=== PATIENT | female | born 1980 | race Caucasian/White ===

== ENCOUNTER 2016-09-01 20:12 | Inpatient (IN) | payer OTHER ==
--- NOTE | ~2016-09-01 | CO ---
Unit #: [id number] #: [id number] Patient: ERIC ABDULLAHI [id number] [address] [place], [place] [address] [id number] I MR#: [id number] NAME: ERIC ABDULLAHI ROOM: 565 Age: 36 Sex: F Admission Date: 09/01/2016 : 1980 Attending Physician: Maritza Cannon M.D. Primary Care Physician: Em Shine M.D. Consultation Date: 09/03/2016 CONSULTATION REPORT REASON FOR CONSULTATION Gram-negative sepsis. HISTORY OF PRESENT ILLNESS This is a 36-year-old female with a history of low back pain and migraines chronically. The patient came to the emergency room with several day complaint of increasing left flank pain with some discomfort with urination and subjective fever and chills. The patient did have a CT scan of the abdomen done when she was admitted which was consistent with left-sided pyelonephritis. She was admitted for further evaluation and was found to have leukocytosis. The patient's blood pressure was borderline and she was admitted to the telemetry floor. The patient now has positive blood cultures for gram-negative rods thought to be E. coli per the microbiology department and urine culture is currently pending. However, there is pyuria on the urinary analysis. The patient initially was started on Rocephin but was changed to cefepime per the primary care team and ID was asked to evaluate. In other report, the patient reports that she recently has been on penicillin due to multiple abscesses in her mouth and she is status post eight teeth extracted. She reports positive tobacco abuse but no drug use. PAST MEDICAL HISTORY As previously stated above, chronic back pain and migraines. PAST SURGICAL HISTORY Back surgeries, hysterectomy, oophorectomy, laparoscopic cholecystectomy and recent teeth extraction secondary to abscesses. SOCIAL HISTORY The patient reports positive tobacco. No alcohol or other drug use. ALLERGIES The patient reports that she is allergic to Naprosyn. MEDICATIONS Patient is currently on cefepime. For other medications, please refer to patient's MAR. REVIEW OF SYSTEMS The patient reports ongoing subjective fever, chills. No sweats. She reports migraine headache. She denies any drug pain, shortness of breath or chest pain. She denies any nausea, vomiting or diarrhea. She does report ongoing left flank pain with some pain with urination; however, this is slightly improved. The patient denies any nonhealing wound. She Unit #: [id number] #: [id number] Patient: ERIC ABDULLAHI does report some discomfort in her mouth. PHYSICAL EXAMINATION GENERAL APPEARANCE: This is a no apparent distressed female who is easily awakened during exam. VITAL SIGNS: Temperature 99.4 with a T-max of 99.5 on admission. Pulse 81. Blood pressure 105/68. Respiratory rate 18. HEENT: The patient's mouth exam reveals poor dentition and multiple teeth extracted. CARDIOVASCULAR: S1, S2. Regular rate and rhythm. PULMONARY: Clear to auscultation bilaterally with no wheezes or rhonchi noted. ABDOMEN: Positive bowel sounds. Soft. There is some left CVA tenderness to palpation and tenderness over bladder. EXTREMITIES: No clubbing, cyanosis or edema. DIAGNOSTIC STUDIES LABORATORY: BUN 13, creatinine 0.7, sodium 135, potassium 3.8, chloride 107, CO2 23, bilirubin 0.9, AST 38, ALT 44. WBC count 10.5, hemoglobin 10.7, hematocrit 33.1, platelets 185. Urinary analysis shows pyuria with innumerable WBCs, positive nitrite, positive blood, 3+ leukocytes and 4+ bacteria. Blood cultures show 2/2 gram-negative rods suspicious of E. coli. Urinary culture is currently pending. IMAGING: CT scan shows swollen left kidney. No hydronephrosis or obstruction. No stones. Suspected pyelonephritis. IMPRESSION This is a 36-year-old female admitted with subjective fever, chills, left flank pain and dysuria. The patient was found to have gram-negative sepsis secondary to urinary tract infection and CT scan consistent with pyelo without evidence of obstruction. At this time, we will follow along the id of the gram-negative lars as it is most likely E. coli. As the patient continues to have some low-grade fever; however, creatinine is stable and her leukocytosis is improving, she has ongoing pain, we will give gentamicin times one until the sensitivities of all cultures are known. We will continue cefepime but increase the dose. We will repeat blood cultures x2 30 minutes apart. The patient does have recently the eight teeth extracted due to abscesses and we will continue to observe her mouth for any ongoing abscesses. The patient does deny to me any drug use during discussion. Thank you for allowing us to participate in the care of this patient. Further recommendations to follow pending patient's clinical course. Dictated by... Tito Mario.P.RAdrianneNAdrianne for Geovany Good/deshaun TD: 09/03/2016 09:31 JOB #: [id number] Unit #: [id number] #: [id number] Patient: ERIC ABDULLAHI CONSULTATION REPORT Page 1 of 1 X X CONSULTATION REPORT
--- NOTE | ~2016-09-01 | DS ---
Unit #: [id number] #: [id number] Patient: ERIC ABDULLAHI [id number] [address] [address] [id number] I MR#: [id number] NAME: ERIC ABDULLAHI ROOM: 565 Age: 36 Sex: F Admission Date: 09/01/2016 : 1980 Discharge Date: 09/06/2016 Attending Physician: Maritza Cannon M.D. Referring Physician: Em Shine M.D. Primary Care Physician: Em Shine M.D. DISCHARGE SUMMARY FINAL DIAGNOSES 1. Gram-negative sepsis bacteremia with Escherichia coli. 2. Acute left pyelonephritis. 3. History of recurrent pyelonephritis. No evidence of ureteral dilatation. 4. 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 5. History of migraine. 6. Chronic back pain. DISCHARGE MEDICATIONS Levaquin 750 mg p.o. daily for 21 days, Bactrim single strength half tablet p.o. p.r.n. as needed for intercourse. Continue rest of the home medications. CONSULTATION DURING HOSPITALIZATION 1. Dr. Woodard from [facility]. 2. Dr. Fish and Dr. Abel from [facility]. DIAGNOSTIC STUDIES LABORATORY RESULTS: Lab workup on discharge; sodium 141, potassium 3.7, chloride 108, BUN 9, creatinine 0.6. CBC shows WBC 8.4, hemoglobin 10.2, hematocrit 31.4, and platelet count of 260. Blood cultures on 09/01/2016 showed E coli, but the repeat one done on 09/03/2016 which was negative for any growth. Urine culture was positive for E coli, which was sensitive to cefepime and also Levaquin. IMAGING STUDIES: Imaging studies done during hospitalization was CT scan of the abdomen and pelvis, which was done on 09/01/2016, which shows diffusely swollen left kidney. No evidence of hydronephrosis or obstruction. There is no evidence of renal or ureteral stones. Most likely representing pyelonephritis. Hepatic steatosis is present, status post cholecystectomy. HOSPITAL COURSE Ms. Eric Abdullahi is a 36-year-old female, who was admitted by my colleague, Dr. Fung, with abdominal pain, nausea, and low back pain with fever and chills. The patient was admitted to telemetry unit. The patient did have leukocytosis and high temperature. Blood cultures were done which grew E coli. Urine culture also grew E coli. The patient received IV cefepime 2 g q.[address] Woodard from Urology services were consulted and as per Dr. Woodard, the patient has had recurrent pyelonephritis. She does have recurrent urinary tract infection associated with intercourse. IV antibiotics were continued and Unit #: [id number] #: [id number] Patient: ERIC ABDULLAHI Bactrim single strength was recommended for intercourse and it was also noted that for break through. She is to follow up in the office of Dr. Wodoard, possibly benefitted from VCUG in the event of future episodes of pyelonephritis. The patient was also seen by Infectious Disease for gram-negative sepsis. The recommendation is to continue Levaquin 750 mg daily for 21 days total. OBJECTIVE VITAL SIGNS: On discharge, blood pressure is 119/72, respiratory rate 16, pulse is 79, temperature 98.2. CHEST: Fair air entry. CVS: Regular rhythm. ABDOMEN: Soft. EXTREMITIES: Negative edema. DISCHARGE INSTRUCTIONS 1. Follow up primary care provider in 1 week. 2. Prescription for Bactrim and Levaquin has been written. 3. Plan of care has been discussed with the patient. 4. Tobacco cessation counseling done. Dictated by... Geovany Morton/ingrid TD: 09/07/2016 01:59 JOB #: [id number] DISCHARGE SUMMARY Page 1 of 1 X Maritza Cannon MD X DISCHARGE SUMMARY
--- NOTE | ~2016-09-01 | CO ---
Unit #: [id number] #: [id number] Patient: ERIC ABDULLAHI [id number] [address] [id number] I MR#: [id number] NAME: ERIC ABDULLAHI ROOM: 565 Age: 36 Sex: F Admission Date: 09/01/2016 : 1980 Attending Physician: Maritza Cannon M.D. Primary Care Physician: Em Shine M.D. Consultation Date: 09/03/2016 CONSULTATION REPORT REASON FOR CONSULTATION Left-sided pyelonephritis. HISTORY This 36-year-old woman presented acutely two days ago with fever and left flank pain. She has been admitted with diagnosis of left pyelonephritis and responded to antibiotic therapy empirically with Rocephin. Note that antibiotics were changed to cefepime and a single dose gentamicin was administered per infectious disease. She is feeling better. She reports several episodes of pyelonephritis among history of recurrent urinary tract infections. On further questioning, she has no history of stomach disease, chronic voiding complaints, trouble emptying, or gross hematuria. She believes at least some of her urinary infections have been associated with intercourse. [employer] history pertinent for two sections. She has not had a hysterectomy, only a left salpingo-oophorectomy. She has had menstrual periods every two weeks lately. PAST MEDICAL HISTORY 1. Low-back pain. 2. Migraines. PAST SURGICAL HISTORY 1. section x2. 2. Cholecystectomy. 3. Left salpingo-oophorectomy. MEDICATIONS 1. Gabapentin. 2. Zofran. 3. Protonix. 4. Propranolol. 5. Flexeril. 6. Lortab. ALLERGIES Naprosyn. FAMILY HISTORY Noncontributory. SOCIAL HISTORY Unit #: [id number] #: [id number] Patient: ERIC ABDULLAHI Active smoker. No drug or alcohol use. Two teenage children. Male partner sleeping with her in the room. REVIEW OF SYSTEMS Pertinent for the above. PHYSICAL EXAMINATION GENERAL: Patient is awake, alert. HEENT: Poor dentition, otherwise normal HEENT. ABDOMEN: Overweight, soft. No anterior tenderness, masses, or hernias. Marked left CVA tenderness. PELVIC: Normal introitus, urethra, and meatus. Fairly good support. A 0 to 1+ cystocele. Normal urethra. Normal cervix and uterus. Blood on pad and fingertip. DIAGNOSTIC STUDIES LABORATORY: Creatinine 0.7. WBC 10 down from 19. Urine culture still pending but there is a gram-negative lars in one of the blood cultures, possibly E. coli. IMAGING: X-ray of CT scan shows left renal edema. No stone or obstruction. No evidence of ureteral dilation. IMPRESSION 1. Acute left pyelonephritis with gram-negative bacteremia. 2. History of recurrent pyelonephritis, no evidence of ureteral dilatation. 3. 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 PLAN 1. Will await culture results and defer definitive antibiotic management to infectious disease. 2. Recommend Bactrim single strength as needed for intercourse one half tab p.r.n. and this is prescribed. 3. For breakthrough, she is invited to follow up with me in the office and could possibly benefit from a VCUG in the event of future episodes of pyelonephritis. Thank you for the consultationMaritza. Dictated by... Surjit Woodard M.D. KETURAH/sury TD: 09/03/2016 12:11 JOB #: [id number] CC: Geovany Morton M.D. Unit #: [id number] #: [id number] Patient: ERIC ABDULLAHI CONSULTATION REPORT Page 1 of 1 X Surjit Woodard MD X CONSULTATION REPORT
--- NOTE | ~2016-09-01 | HP ---
Unit #: [id number] #: [id number] Patient: ERIC ABDULLAHI [id number] [address] [address] [id number] I MR#: [id number] NAME: ERIC ABDULLAHI ROOM: 565 Age: 36 Sex: F Admission Date: 09/01/2016 : 1980 Attending Physician: Maritza Cannon M.D. Referring Physician: Em Shine M.D. Primary Care Physician: Em Shine M.D. HISTORY AND PHYSICAL ADMISSION DIAGNOSES 1. Left pyelonephritis. 2. History of chronic back pain. 3. History of migraines. 4. Bacteremia with questionable sepsis. HISTORY OF PRESENT ILLNESS Ms. Eric Abdullahi is a 36-year-old female with a past medical history of chronic low back pain, migraines. She is a patient of Dr. Shine'farideh who presents to the emergency room with the complaints of left sided flank pain along with some dysuria and subjective fever and chills. CT of the abdomen and pelvis showed the left sided pyelonephritis. The patient's white count is 16,000. She is slightly hypotensive at 100/60. Initial evaluation also significant for one out of two preliminary blood cultures positive for GNR. The patient was started on the IV Rocephin and admitted. She currently denies any other symptoms, denies any chest pain, shortness of air, dyspnea. Denies any headache, dizziness. She is nauseous. Denies any vomiting or diarrhea. Denies any syncope or presyncope. REVIEW OF SYSTEMS Twelve point review of systems on this patient is basically negative except as above. PAST MEDICAL HISTORY Significant for: 1. History of chronic low back pain. 2. Migraines. PAST SURGICAL HISTORY Significant for: 1. Multiple back surgeries. 2. Hysterectomy. 3. It looks like she had also a C-scope per general surgery. 4. Left oophorectomy and salpingectomy in the past. 5. Lap rosa. MEDICATIONS Home medications on this female - apparently, she was takin. Gabapentin. 2. Zofran. 3. Protonix. 4. Propranolol. 5. Flexeril. Unit #: [id number] #: [id number] Patient: ERIC ABDULLAHI 6. Lortab. ALLERGIES Coded allergies include Naprosyn but she received Toradol without any difficulties and continues to take Toradol without any problems. FAMILY HISTORY Unremarkable. SOCIAL HISTORY She is an active smoker. Denies any alcohol or illicit drug abuse. FAMILY HISTORY Unremarkable. PHYSICAL EXAMINATION GENERAL: The patient is a 36-year-old female in no acute distress. VITAL SIGNS: Blood pressure 100/60, heart rate 58, respirations 20, temperature 97.9. HEENT: Head is atraumatic. Pupils equal, round and reactive to light and accommodation. Extraocular muscles intact. Oropharynx clean. NECK: Supple. No masses, no JVD, no bruits. CHEST: Diminished bilaterally. CARDIOVASCULAR EXAM: S1, S2. No murmurs. ABDOMEN: Soft, nontender, nondistended. EXTREMITIES: Lower extremities without any cyanosis, clubbing or edema. She does have a left sided CVA tenderness. NEUROLOGICAL: The patient is grossly intact. No focal deficits. DIAGNOSTIC STUDIES IMAGING: CT abdomen and pelvis as above. LABORATORY: White count 16,000, H and H 11.3 and 35, blood glucose of 217. ASSESSMENT AND PLAN 1. Left sided pyelonephritis: Will change Rocephin to cefepime since patient does have bacteremia as well. 2. Bacteremia: Continue with IV cefepime. Ask ID consult. Will start sepsis protocol. Check lactic acid in the morning. 3. History of chronic back pain: Continue chronic pain meds. 4. History of migraines: Continue propranolol. 5. GI and DVT prophylaxis with some PPI and SCDs. Dictated by Geovany Howell/edilia TD: 09/03/2016 05:27 JOB #: [id number] Unit #: [id number] #: [id number] Patient: ERIC ABDULLAHI HISTORY AND PHYSICAL Page 1 of 1 X Mike Fung MD HISTORY AND PHYSICAL
--- NOTE | ~2016-09-01 | CT4 ---
[facility] A Service of [facility] RADIOLOGY TEXT RESULTS PATIENT: ERIC ABDULLAHI LOCATION: [facility] 565-01 : [birth year] UNIT #: [id number] AGE: [address]: Maritza Cannon MD SEX: F ORDER DR: [id number] [facility] [address] [place], [place] [address] [id number] I MR#: [id number] Acc #: [id number] NAME: ERIC ABDULLAHI : 1980 SEX: F STUDY DATE/TIME: 09/01/2016 21:44 UNIT: [facility] ROOM: 5 STUDY DESCRIPTION: CT Abd and Pelv Wo Cont Attending Physician: Maritza Cannon M.D. Referring Physician: Em Shine M.D. Ordering Physician: Tamiko Lang M.D. Primary Care Physician: Em Shine M.D. MEDICAL IMAGING REPORT This report is preliminary unless electronic signature is present EXAM CT of the abdomen and pelvis without contrast media. HISTORY Left flank pain, fever, vomiting for two day. TECHNIQUE Transaxial imaging of the abdomen and pelvis was performed without contrast media. This CT exam was performed with one or more of the following radiation dose reduction techniques: automatic exposure control, adjustment of mA and/or kV according to patient size, and iterative reconstruction. FINDINGS Scans through the lung bases are normal. Scans through the liver parenchyma show an area of hepatic steatosis in segment 4 of the liver. Spleen in this patient appears of normal size. Adrenal glands are normal. Pancreas is relatively atrophic. Gallbladder is absent. The right kidney is normal. There is perinephric edema around the left kidney and the left kidney is swollen. There are no stones identified in the left kidney. The left ureter is nondilated. There are no stones within the left ureter. The bladder is normal. The uterus is unremarkable. There are small follicular cysts in the left ovary. No pelvic masses are seen. There are no fluid collections. Appendix is normal. CONCLUSION 1. Diffusely swollen left kidney. There is no evidence of hydronephrosis or obstruction. There is no evidence of renal or ureteral stones. I think this most likely represents pyelonephritis. 2. Hepatic steatosis particularly segment 4. 3. Status post cholecystectomy. [facility]. [facility] A Service of [facility] RADIOLOGY TEXT RESULTS PATIENT: ERIC ABDULLAHI LOCATION: [facility] 565-01 : [birth year] UNIT #: [id number] AGE: [address]: Maritza Cannon MD SEX: F ORDER DR: Dictated by... Vincenzo Mcknight M.D. THIS IS AN ELECTRONICALLY VERIFIED REPORT Vincenzo Mcknight M.D. at 09/02/2016 10:35 AM Jose Angel TD: 09/02/2016 06:09 JOB #: [id number] MEDICAL IMAGING REPORT Page 1 of 1 COPY
[~2016-09-01 20:12] MED LIST: ACIPHEX20 MG PO; AMBIEN10 MG; BACTRIM 400-801 TA1 PO; BCP; BIRTH CONTROL PILL PO; CLEOCIN PO; COZAAR PO; DIFLUCAN10 MG/ML PO; FIORINAL CAPSUL1 CAP PO; FLEXERIL; HYZAAR 100-12.51 TAB PO; KLONOPIN; LEVAQUIN PO; LITHIUM; LORTAB 10-5001 EACH PO; MIDRIN CAPSULE1 CAP; PAXIL CR; PHENERGAN25 M1 PO; PHENERGAN25 MG PO; PROZAC; SYNTHROID
[2016-09-01 20:47] LABS: BASOPHIL# 0.1 X10e3 (0-0.3); BASOPHIL% 0.4 % (0-2.5); HEMATOCRIT 38.2 % (35.0-45.0); HEMOGLOBIN 12.3 gm/dL (12.0-16.0); LYMPHOCYTE# 0.8 X10e3 (1.0-3.5); LYMPHOCYTE% 4.1 % (17.0-45.0); MEAN CELL VOLUME 81.9 FL (83-96); MEAN CORPUSCULAR HEMOGLOBIN 26.4 PG (28-34); MEAN CORPUSCULAR HGB CONC 32.3 g/dL (30-36); MEAN PLATELET VOLUME 7.9 FL (6.5-11.5); MONOCYTE# 1.3 X10e3 (0-1.0); MONOCYTE% 6.7 % (3.0-12.0); NEUTROPHIL# 17.1 X10e3 (1.5-7.1); NEUTROPHIL% 88.8 % (40-75); PLATELET COUNT 231 X10e3 (140-420); RED BLOOD COUNT 4.66 X10e (3.90-5.30); RED CELL DISTRIBUTION WIDTH 17.1 % (11.0-15.5); WHITE BLOOD COUNT 19.3 X10e3 (4.0-10.5)
[2016-09-01 20:53] LABS: DIFF IND YES
[2016-09-01 21:09] LABS: URINE SOURCE CLEAN CATCH
[2016-09-01 21:09] LABS: PLATELET ESTIMATE NORMAL (NORMAL)
[2016-09-01 21:11] LABS: ANISOCYTOSIS SL; HYPOCHROMIA SL
[2016-09-01 21:15] LABS: URINE APPEARANCE TURBID; URINE BLOOD 3+ (NEG); URINE COLOR DK YELLOW; URINE GLUCOSE NEG (NEG); URINE KETONE 2+ (NEG); URINE LEUKOCYTE ESTERASE 3+ (NEG); URINE NITRATE POS (NEG); URINE PROTEIN 2+ (NEG)
[2016-09-01 21:15] LABS: ALBUMIN SERUM 3.6 g/dL (3.5-5.0); ALKALINE PHOSPHATASE 119 U/L (32-92); ALT (SGPT) 46 U/L (10-40); AMYLASE 3 U/L (0-46); AST (SGOT) 39 U/L (10-42); BILIRUBIN, DIRECT 0.3 mg/dL (0.0-0.2); BILIRUBIN,INDIRECT 0.6 mg/dL (0.0-0.9); BILIRUBIN,TOTAL 0.9 mg/dL (0.2-2.0); BLOOD UREA NITROGEN 10 mg/dL (9-23); BUN/CREATININE RATIO 14.28; CALCIUM SERUM 8.9 mg/dL (8.4-10.2); CARBON DIOXIDE 16 mmol/L (22-31); CHLORIDE 106 mmol/L (100-111); CREATININE SERUM 0.7 mg/dL (0.6-1.4); GLOM FILT RATE Estimated ABOVE60 mL/min (>60); GLUCOSE FASTING 108 mg/dL (70-110); LIPASE 10 U/L (22-51); POTASSIUM 3.8 mmol/L (3.5-5.1); PROTEIN TOTAL SERUM 7.1 g/dL (6.0-8.3); SODIUM 133 mmol/L (135-145)
[2016-09-01 21:18] LABS: URINE BILIRUBIN NEG (NEG)
[2016-09-01 21:19] LABS: CULTURE INDICATED? YES; URBCS1 AUWI 100-200 /[HPF] (0-2); URINE BACTERIA AUWI 4+ (NEGATIVE); URINE SQUAMOUS EPITHELIAL CELL OCC /[HPF]; UWBCS1 AUWI INNUM (0-5)
[2016-09-01 21:23] LABS: U HYALINE CASTS AUWI 0-2 /[LPF]
[2016-09-01] MEDS ORDERED: NO MEDICATIONS (23:08)
[2016-09-02] MEDS ORDERED: PROTONIX PO (02:33)
[2016-09-02] MEDS ORDERED: NEURONTIN PO (02:33)
[2016-09-02] MEDS ORDERED: INDERAL40 MG PO (02:33)
[2016-09-02] MEDS ORDERED: FLEXERIL10 MG PO (02:34)
[2016-09-02] MEDS ORDERED: AMBIEN PO (02:34)
[2016-09-02 12:57] LABS: BASOPHIL% 0.2 % (0-2.5); HEMOGLOBIN 11.3 gm/dL (12.0-16.0); LYMPHOCYTE# 0.7 X10e3 (1.0-3.5); MEAN CELL VOLUME 82.7 FL (83-96); MEAN CORPUSCULAR HEMOGLOBIN 26.7 PG (28-34); MEAN CORPUSCULAR HGB CONC 32.3 g/dL (30-36); MEAN PLATELET VOLUME 8.2 FL (6.5-11.5); MONOCYTE# 0.9 X10e3 (0-1.0); MONOCYTE% 5.1 % (3.0-12.0); NEUTROPHIL# 15.3 X10e3 (1.5-7.1); NEUTROPHIL% 90.7 % (40-75); PLATELET COUNT 213 X10e3 (140-420); RED BLOOD COUNT 4.23 X10e (3.90-5.30); RED CELL DISTRIBUTION WIDTH 17.1 % (11.0-15.5); WHITE BLOOD COUNT 16.9 X10e3 (4.0-10.5)
[2016-09-02 12:58] LABS: DIFF IND NO
[2016-09-02 13:09] LABS: ALBUMIN SERUM 2.9 g/dL (3.5-5.0); BILIRUBIN,TOTAL 0.9 mg/dL (0.2-2.0); BUN/CREATININE RATIO 17.14; CALCIUM SERUM 8.5 mg/dL (8.4-10.2); CREATININE SERUM 0.7 mg/dL (0.6-1.4); GLOM FILT RATE Estimated 109.9 mL/min (>60); POTASSIUM 3.8 mmol/L (3.5-5.1); PROTEIN TOTAL SERUM 6.3 g/dL (6.0-8.3)
[2016-09-03 01:35] LABS: INR 1.1; PROTHROMBIN TIME (PATIENT) 12.1 SECONDS (9.6-11.5)
[2016-09-03 06:59] LABS: HEMATOCRIT 33.1 % (35.0-45.0); HEMOGLOBIN 10.7 gm/dL (12.0-16.0); MEAN CELL VOLUME 83.2 FL (83-96); MEAN CORPUSCULAR HGB CONC 32.4 g/dL (30-36); MEAN PLATELET VOLUME 8.5 FL (6.5-11.5); RED BLOOD COUNT 3.98 X10e (3.90-5.30); RED CELL DISTRIBUTION WIDTH 17.1 % (11.0-15.5); WHITE BLOOD COUNT 10.5 X10e3 (4.0-10.5)
[2016-09-03 07:43] LABS: BUN/CREATININE RATIO 18.57; CALCIUM SERUM 8.3 mg/dL (8.4-10.2); CREATININE SERUM 0.7 mg/dL (0.6-1.4); GLOM FILT RATE Estimated 109.9 mL/min (>60); POTASSIUM 3.8 mmol/L (3.5-5.1)
[2016-09-04 06:21] LABS: HEMATOCRIT 32.4 % (35.0-45.0); HEMOGLOBIN 10.5 gm/dL (12.0-16.0); MEAN CELL VOLUME 83.7 FL (83-96); MEAN CORPUSCULAR HEMOGLOBIN 27.2 PG (28-34); MEAN CORPUSCULAR HGB CONC 32.4 g/dL (30-36); MEAN PLATELET VOLUME 8.5 FL (6.5-11.5); RED BLOOD COUNT 3.88 X10e (3.90-5.30); RED CELL DISTRIBUTION WIDTH 17.1 % (11.0-15.5); WHITE BLOOD COUNT 8.7 X10e3 (4.0-10.5)
[2016-09-04 07:05] LABS: BUN/CREATININE RATIO 15.55; CREATININE SERUM 0.9 mg/dL (0.6-1.4); GLOM FILT RATE Estimated 81.2 mL/min (>60); POTASSIUM 3.3 mmol/L (3.5-5.1)
[2016-09-05 04:51] LABS: HEMATOCRIT 30.9 % (35.0-45.0); HEMOGLOBIN 9.9 gm/dL (12.0-16.0); MEAN CELL VOLUME 84.2 FL (83-96); MEAN CORPUSCULAR HEMOGLOBIN 26.9 PG (28-34); MEAN PLATELET VOLUME 8.4 FL (6.5-11.5); RED BLOOD COUNT 3.67 X10e (3.90-5.30); RED CELL DISTRIBUTION WIDTH 17.1 % (11.0-15.5); WHITE BLOOD COUNT 6.6 X10e3 (4.0-10.5)
[2016-09-05 05:07] LABS: BUN/CREATININE RATIO 13.75; CALCIUM SERUM 8.5 mg/dL (8.4-10.2); CREATININE SERUM 0.8 mg/dL (0.6-1.4); GLOM FILT RATE Estimated 93.6 mL/min (>60); POTASSIUM 3.7 mmol/L (3.5-5.1)
[2016-09-06 07:17] LABS: HEMATOCRIT 31.4 % (35.0-45.0); HEMOGLOBIN 10.2 gm/dL (12.0-16.0); MEAN CORPUSCULAR HEMOGLOBIN 27.1 PG (28-34); MEAN CORPUSCULAR HGB CONC 32.6 g/dL (30-36); MEAN PLATELET VOLUME 8.2 FL (6.5-11.5); RED BLOOD COUNT 3.78 X10e (3.90-5.30); RED CELL DISTRIBUTION WIDTH 17.4 % (11.0-15.5); WHITE BLOOD COUNT 8.4 X10e3 (4.0-10.5)
[2016-09-06 07:51] LABS: CALCIUM SERUM 8.4 mg/dL (8.4-10.2); CREATININE SERUM 0.6 mg/dL (0.6-1.4); GLOM FILT RATE Estimated 115.6 mL/min (>60); POTASSIUM 3.7 mmol/L (3.5-5.1)
[2016-09-06] MEDS ORDERED: ACETAMINOPHEN PO (11:22)
[2016-09-06] MEDS ORDERED: FLORASTORKIDS250 MG PO (11:23)
[2016-09-06] MEDS ORDERED: LEVAQUIN750 MG PO (11:23)
[2016-09-06] MEDS ORDERED: BACTRIM DS TABL1 TA2 PO (11:24)
== END 2016-09-06 12:35 | disposition home or self-care (01) | DRG 872 ==
LOC: CED 20:12 → CEDOF 22:09 → C5C 09-02 02:10
PROVIDERS: Emergency Medicine; Hospitalist; Physician Assistant Medical
DX: A41.51 Sepsis due to Escherichia coli [E. coli] (principal); N10 Acute pyelonephritis; G43.909 Migraine, unspecified, not intractable, without status migrainosus; M54.9 Dorsalgia, unspecified; G89.29 Other chronic pain; Z90.49 Acquired absence of other specified parts of digestive tract; F17.210 Nicotine dependence, cigarettes, uncomplicated; Z90.710 Acquired absence of both cervix and uterus; B96.20 Unspecified Escherichia coli [E. coli] as the cause of diseases classified elsewhere; R19.7 Diarrhea, unspecified
CPT/HCPCS: 36415; 74176; 80048; 80053; 80076; 81003; 82150; 82947; 83036; 83605; 83690; 84703; 85025; 85027; 85610; 87040; 87077; 87086; 87088; 87186; 96361; 96365; 96375; 99291; C9113; J0692; J0696; J1170; J1580; J1885; J2270; J2405

== ENCOUNTER 2016-12-21 20:11 | Emergency (ER) | payer OTHER ==
[~2016-12-21 20:11] MED LIST changes: +ACETAMINOPHEN PO; +AMBIEN PO; +BACTRIM DS TABL1 TA2 PO; +FLEXERIL10 MG PO; +FLORASTORKIDS250 MG PO; +INDERAL40 MG PO; +LEVAQUIN750 MG PO; +NEURONTIN PO; +NO MEDICATIONS; +PROTONIX PO
[2016-12-21 21:44] LABS: BASOPHIL% 0.4 % (0-2.5); EOSINOPHIL# 0.2 X10e3 (0-0.7); EOSINOPHIL% 2.5 % (0.0-7.0); HEMATOCRIT 43.8 % (35.0-45.0); HEMOGLOBIN 14.3 gm/dL (12.0-16.0); LYMPHOCYTE# 1.3 X10e3 (1.0-3.5); LYMPHOCYTE% 15.9 % (17.0-45.0); MEAN CELL VOLUME 87.1 FL (83-96); MEAN CORPUSCULAR HEMOGLOBIN 28.4 PG (28-34); MEAN CORPUSCULAR HGB CONC 32.6 g/dL (30-36); MEAN PLATELET VOLUME 7.8 FL (6.5-11.5); MONOCYTE# 0.8 X10e3 (0-1.0); MONOCYTE% 10.3 % (3.0-12.0); NEUTROPHIL# 5.6 X10e3 (1.5-7.1); NEUTROPHIL% 70.9 % (40-75); PLATELET COUNT 262 X10e3 (140-420); RED BLOOD COUNT 5.03 X10e (3.90-5.30); RED CELL DISTRIBUTION WIDTH 14.6 % (11.0-15.5); WHITE BLOOD COUNT 7.9 X10e3 (4.0-10.5)
[2016-12-21 21:51] LABS: DIFF IND NO
[2016-12-21 22:16] LABS: ALBUMIN SERUM 4.2 g/dL (3.5-5.0); BILIRUBIN, DIRECT 0.1 mg/dL (0.0-0.2); BILIRUBIN,INDIRECT 0.3 mg/dL (0.0-0.9); BILIRUBIN,TOTAL 0.4 mg/dL (0.2-2.0); CREATININE SERUM 0.5 mg/dL (0.6-1.4); GLOM FILT RATE Estimated 122.8 mL/min (>60); POTASSIUM 3.7 mmol/L (3.5-5.1); PROTEIN TOTAL SERUM 8.2 g/dL (6.0-8.3)
[2016-12-21 23:37] LABS: AMPHETAMINE POS (NEG); BARBITURATES NEG (NEG); BENZODIAZEPINES POS (NEG); COCAINE NEG (NEG); MARIJUANA NEG (NEG); OPIATES POS (NEG); TRICYCLIC ANTIDEPRESSANTS NEG (NEG); U METHADONE NEG (NEG)
[2016-12-22 01:24] LABS: CULTURE INDICATED? YES; U HYALINE CASTS AUWI 0-2 /[LPF]; URBCS1 AUWI 0-2 /[HPF] (0-2); URINE APPEARANCE CLEAR; URINE BACTERIA AUWI 4+ (NEGATIVE); URINE BILIRUBIN NEG (NEG); URINE BLOOD TRACE (NEG); URINE COLOR YELLOW; URINE GLUCOSE NEG (NEG); URINE KETONE NEG (NEG); URINE LEUKOCYTE ESTERASE TRACE (NEG); URINE NITRATE NEG (NEG); URINE PH 6.5 (5-8); URINE PROTEIN NEG (NEG); URINE SPECIFIC GRAVITY 1.011 (1.003-1.035); URINE SQUAMOUS EPITHELIAL CELL NONE SEEN /[HPF]; URINE UROBILINOGEN 0.2 MG/DL (NEG)
[2016-12-22 01:25] LABS: URINE SOURCE CLEAN CATCH
== END 2016-12-22 02:03 | disposition home or self-care (01) ==
LOC: CED 20:11
PROVIDERS: Nurse Practitioner
DX: N39.0 Urinary tract infection, site not specified (principal); F19.10 Other psychoactive substance abuse, uncomplicated; L02.414 Cutaneous abscess of left upper limb; F31.9 Bipolar disorder, unspecified; F17.210 Nicotine dependence, cigarettes, uncomplicated; I10 Essential (primary) hypertension; Z90.710 Acquired absence of both cervix and uterus; Z90.49 Acquired absence of other specified parts of digestive tract; Z88.8 Allergy status to other drugs, medicaments and biological substances
CPT/HCPCS: 36415; 80048; 80076; 80307; 81003; 82150; 83690; 85025; 87086; 87088; 87186; 96374; 96375; 99283; C9113; J1200; J1885; J2765

== ENCOUNTER 2016-12-28 01:13 | Emergency (ER) | payer OTHER ==
[~2016-12-28] VITALS: Ht 167.6 cm; Wt 74.8 kg
--- NOTE | ~2016-12-28 | CT4 ---
[facility] A Service of [facility] RADIOLOGY TEXT RESULTS PATIENT: ERIC ABDULLAHI LOCATION: [facility] : [birth year] UNIT #: [id number] AGE: [address]: Chris Bagley DO SEX: F ORDER DR: [id number] [facility] [address] [place], [place] [address] [id number] E MR#: [id number] Acc #: [id number] NAME: ERIC ABDULLAHI : 1980 SEX: F STUDY DATE/TIME: 12/28/2016 4:59 UNIT: [facility] ROOM: STUDY DESCRIPTION: CT Abd and Pelv Wo Cont Attending Physician: Chris Bagley D.O. Ordering Physician: Chris Bagley D.O. Primary Care Physician: Lisa Guadarrama M.D. MEDICAL IMAGING REPORT This report is preliminary unless electronic signature is present EXAM CT abdomen and pelvis without contrast INDICATIONS Bilateral flank pain for the past 1.[address] of the abdomen and pelvis. This CT exam was performed with one or more of the following radiation dose reduction techniques: automatic exposure control, adjustment of mA and/or kV according to patient size, and iterative reconstruction. COMPARISON 09/01/2016 FINDINGS Abdomen without contrast: Included lung bases are clear. Liver, spleen, kidneys, adrenal glands, pancreas have an unremarkable unenhanced appearance. Previous cholecystectomy. Appendix is normal. Bowel loops are nondilated. No radiodense urinary system calculus or hydronephrosis. Pelvis without contrast: No pelvic mass or fluid. No aggressive appearing bone lesion. IMPRESSION No acute findings in the abdomen or pelvis. No radiodense urinary system calculus or hydronephrosis. Dictated by... Juan Allen M.D. [facility] A Service [facility] RADIOLOGY TEXT RESULTS PATIENT: ERIC ABDULLAHI LOCATION: [facility] : [birth year] UNIT #: [id number] AGE: [address]: Chris Bagley DO SEX: F ORDER DR: THIS IS AN ELECTRONICALLY VERIFIED REPORT Juan Allen M.D. at 12/28/2016 9:52 PM EED/to TD: 12/28/2016 13:51 JOB #: [id number] MEDICAL IMAGING REPORT Page 1 of 1 COPY
[2016-12-28 02:01] LABS: URINE SOURCE CLEAN CATCH
[2016-12-28 02:17] LABS: URINE APPEARANCE CLEAR; URINE BILIRUBIN NEG (NEG); URINE BLOOD NEG (NEG); URINE COLOR DK YELLOW; URINE GLUCOSE NEG (NEG); URINE KETONE NEG (NEG); URINE LEUKOCYTE ESTERASE NEG (NEG); URINE NITRATE NEG (NEG); URINE PROTEIN TRACE (NEG); URINE SPECIFIC GRAVITY 1.027 (1.003-1.035)
[2016-12-28 02:23] LABS: CULTURE INDICATED? NO
[2016-12-28 05:21] LABS: BASOPHIL# 0.1 X10e3 (0-0.3); BASOPHIL% 0.6 % (0-2.5); EOSINOPHIL# 0.1 X10e3 (0-0.7); EOSINOPHIL% 1.9 % (0.0-7.0); HEMOGLOBIN 12.9 gm/dL (12.0-16.0); LYMPHOCYTE# 1.7 X10e3 (1.0-3.5); LYMPHOCYTE% 21.7 % (17.0-45.0); MEAN CELL VOLUME 85.3 FL (83-96); MEAN CORPUSCULAR HEMOGLOBIN 28.3 PG (28-34); MEAN CORPUSCULAR HGB CONC 33.1 g/dL (30-36); MONOCYTE# 0.7 X10e3 (0-1.0); MONOCYTE% 9.4 % (3.0-12.0); NEUTROPHIL# 5.3 X10e3 (1.5-7.1); NEUTROPHIL% 66.4 % (40-75); PLATELET COUNT 217 X10e3 (140-420); RED BLOOD COUNT 4.57 X10e (3.90-5.30); RED CELL DISTRIBUTION WIDTH 14.6 % (11.0-15.5); WHITE BLOOD COUNT 7.9 X10e3 (4.0-10.5)
[2016-12-28 05:30] LABS: DIFF IND NO
[2016-12-28 05:44] LABS: ALBUMIN SERUM 3.4 g/dL (3.5-5.0); BILIRUBIN, DIRECT 0.2 mg/dL (0.0-0.2); BILIRUBIN,INDIRECT 0.2 mg/dL (0.0-0.9); BILIRUBIN,TOTAL 0.4 mg/dL (0.2-2.0); BUN/CREATININE RATIO 13.33; CALCIUM SERUM 8.9 mg/dL (8.4-10.2); CREATININE SERUM 0.9 mg/dL (0.6-1.4); GLOM FILT RATE Estimated 81.2 mL/min (>60); POTASSIUM 4.4 mmol/L (3.5-5.1); PROTEIN TOTAL SERUM 6.8 g/dL (6.0-8.3)
== END 2016-12-28 06:53 | disposition home or self-care (01) ==
LOC: CED 01:13
PROVIDERS: Emergency Medicine
DX: R10.9 Unspecified abdominal pain (principal); I10 Essential (primary) hypertension; F41.9 Anxiety disorder, unspecified; F17.200 Nicotine dependence, unspecified, uncomplicated; Z88.8 Allergy status to other drugs, medicaments and biological substances
CPT/HCPCS: 36415; 74176; 80048; 80076; 81003; 83605; 83690; 84703; 85025; 96361; 96374; 99284; J2405